=== PATIENT | male | born 1990 | race Two or more races ===

== ENCOUNTER 2018-11-11 03:30 | Emergency (ER) | payer OTHER ==
[~2018-11-11] VITALS: Ht 172.7 cm; Wt 104.3 kg
[2018-11-11 08:30] VITALS: BP 134/97
== END 2018-11-11 10:10 | disposition home or self-care (01) ==
LOC: ER 03:42
DX: S52.602A Unspecified fracture of lower end of left ulna, initial encounter for closed fracture (principal); Y08.89XA Assault by other specified means, initial encounter; Y93.89 Activity, other specified; Y99.8 Other external cause status; Y92.89 Other specified places as the place of occurrence of the external cause
CPT/HCPCS: 29105; 73080; 73110